=== PATIENT | male | born 1990 | race Two or more races ===

== ENCOUNTER 2025-02-24 10:47 | Emergency (ER) | payer OTHER, SELFPAY ==
[2025-02-24 10:49] VITALS: BP 140/94
[2025-02-24] MEDS: AUGMENTIN 875 MG/125 MG 1 TABLET PO (13:18)
[2025-02-24] MEDS: MOTRIN 600 MG PO (13:18)
--- NOTE | 2025-02-24 13:19 | ED.GENMED ---
History of Present Illness
General
Chief Complaint: Headache
Source: patient
Exam Limitations: none
Time Seen by Provider: 02/24/25 13:00
Nursing documentation reviewed up to this point in time: agreed with
History of Present Illness
History of Present Illness:
34-year-old male smoker, presents with bilateral earache, headache after he coughs, pain in his jaw, worse when he opens his mouth, no fever, no vomiting, no rash no sick contacts
Past History
Past History
ED Past Medical History: None
ED Past Surgical History: None
Social History
Tobacco: Smoker
Alcohol: None
Drug: None
Personal:
Living: with family
Employment: Employed
Review of Systems
Review of Systems
All Other Systems: Not applicable
Constitutional: Denies fever or fatigue
EENT: Reports other (Earache jaw pain headache)
Respiratory: Reports cough
Cardiac: Reports no symptoms
Neurological: Reports headache (After he coughs)
Phy Exam
Physical Exam
Physical Exam:
Physical Exam
General: no apparent distress, not acutely ill
Neck: Posterior pharynx is clear TMs red and retracted bilaterally no pain with flexion of the
Heart: s1/s2 regular rate and rhythm, no murmur. equal radial pulses.
Lungs: No wheezing
Abdomen: Nontender
Neuro: alert and oriented. no focal neurological deficits
Skin: no rash
Psychiatric: well kept. interactive and cooperative
Extremities: no edema.
Course
Orders/Labs/Results
Orders:
Orders
02/24/25 13:12
Amoxicillin 875 mg/Clav 125 mg [Augmentin 875 mg/125 mg] 1 tablet PO NOW STA
Ibuprofen [Motrin] 600 mg PO NOW STA
Vital Signs
Initial and Last Documented VS:
Initial Vital Signs
Temp Pulse Resp BP Pulse Ox
98.7 F 59 16 140/94 98
02/24/25 10:49 02/24/25 10:49 02/24/25 10:49 02/24/25 10:49 02/24/25 10:49
Last Documented Vital Signs
Temp Pulse Resp BP Pulse Ox
98.7 F 59 16 140/94 98
02/24/25 10:49 02/24/25 10:49 02/24/25 10:49 02/24/25 10:49 02/24/25 10:49
MDM/Problems Addressed
Differential Diagnosis Includes:
Otitis media sinusitis strep doubt [employer] infection or intracerebral hemorrhage
MDM/Problems Addressed:
Earache decreased hearing
Chronic conditions affecting care:
Smoking
*Pulse Oximetry
SaO2: 98
Oxygen Mode of Delivery: Room air
Patient hypoxic: no
*Critical Care Note
Total Time (30-74mins, 75-104mins- exclusive of procedures): Not Applicable
Update Note
Update Note:
Patient well-appearing nontoxic will treat with antibiotics and analgesics PCP follow-up
ED Attending Note
-
Portions of this chart may have been created with voice recognition software.� Occasional wrong word or��sound alike� substitutions may have occurred due to the inherent limitations of voice recognition software.
Discharge Plan
Departure
Patient Disposition: Home (Routine Discharge)
Date of Disposition: 02/24/25
Time of Disposition: 13:13
Patient with high blood pressure during this ER visit?: No
Condition: Good
Covid-19: Not Applicable
Discharge Problem:
Otitis media
Instructions: Headache, Adult (DC), Ear infection - ED discharge instructions
Prescriptions:
New
amoxicillin-pot clavulanate 875-125 mg tablet
1 tab PO BID Qty: 20 0RF
ibuprofen 600 mg tablet
600 mg PO Q6H PRN (Reason: Pain) Qty: 20 0RF
Referrals:
Soni Gagnon NP [Family Provider, Family Practice] - Follow up in 5-7 days
Interventions
Interventions:
*Risk Screen - Suicide Last Done: 02/24/25 10:49
*General Assessment Last Done: 02/24/25 10:49
*Neglect/Abuse Screening Last Done: 02/24/25 10:49
*ED COVID-19 Vaccine History Last Done: 02/24/25 10:49
ED- Neurological Assessment Last Done: 02/24/25 11:54
Discharge Date and Time
Print Language: PAKIST[place]
== END 2025-02-24 13:28 | disposition home or self-care (01) ==
LOC: EMR 10:47
PROVIDERS: EMERGENCY PHYSICIAN Emergency Medicine; FAMILY PHYSICIAN Nurse Practitioner Adult Health
DX: H66.93 Otitis media, unspecified, bilateral (principal); F17.200 Nicotine dependence, unspecified, uncomplicated
CPT/HCPCS: 99283